=== PATIENT | male | born 1965 | race Two or more races ===

== ENCOUNTER → 2025-03-26 | Outpatient (CLI) | payer MEDICAID ==
[2025-03-26 12:40] LABS: Hematocrit 41.0 % (41.0-53.0); Hemoglobin 14.3 g/dL (13.5-17.5); Mean Corpuscular Hemoglobin 32.0 pg (28.0-32.0); Mean Corpuscular Volume 91.8 fL (80.0-100.0); Nucleated Red Blood Cells % 0.0 %
[2025-03-26 12:54] LABS: Urine Protein, UAD Negative (Negative)
[2025-03-26 13:01] LABS: Albumin 4.2 g/dL (3.2-4.8); Alkaline Phosphatase 65 U/L (46-116); Anion Gap 8 (5-15); BUN/Creatinine Ratio 10.8 (10.0-20.0); Blood Urea Nitrogen 9 mg/dL (9-23); Calcium 9.0 mg/dL (8.7-10.4); Carbon Dioxide 27 mmol/L (20-31); Chloride 106 mmol/L (98-107); Glucose 99 mg/dL (74-106); Potassium 4.1 mmol/L (3.5-5.1); Sodium 141 mmol/L (136-145); Total Protein 6.8 g/dL (5.7-8.2); Triglycerides 67 mg/dL (< 150)
[2025-03-26 13:02] LABS: Alanine Aminotransferase 45 U/L (7-40); Bilirubin, Total 0.7 mg/dL (0.2-1.0); Cholesterol 157 mg/dL (< 200); HDL Cholesterol 55 mg/dL (40-59)
== END | disposition home or self-care (01) ==
LOC: LAB 12:03
PROVIDERS: ATTEND Internal Medicine
DX: Z00.01 Encounter for general adult medical examination with abnormal findings (principal); N20.0 Calculus of kidney; M54.42 Lumbago with sciatica, left side; G40.909 Epilepsy, unspecified, not intractable, without status epilepticus
CPT/HCPCS: 36415; 80053; 80061; 81001; 83036; 84439; 84443; 85025